=== PATIENT | male | born 1980 | race Caucasian/White ===

== ENCOUNTER 2017-11-18 21:41 | Emergency (ER) | payer MEDICARE, MEDICAID ==
[~2017-11-18] VITALS: Ht 188 cm; Wt 154.0 kg
[2017-11-18] MEDS ORDERED: ONDANSETRON ODT 4 MG ONE (22:22)
[2017-11-18] MEDS ORDERED: DIPHENHYDRAMINE 25 MG CAPSULE ONE (22:22)
[2017-11-18] MEDS ORDERED: DIPHENHYDRAMINE 25 MG CAPSULE PO ONE (22:30)
[2017-11-18] MEDS ORDERED: SODIUM CHLORIDE FLUSH 10ML SYR IVF ONE (22:30)
[2017-11-18] MEDS ORDERED: ONDANSETRON ODT 4 MG PO ONE (22:30)
[2017-11-18 23:00] LABS: BASOPHILS # (AUTO) 0.13 x10^3/uL (0-0.1); BASOPHILS % (AUTO) 2 % (0-1); EOSINOPHILS # (AUTO) 0.26 x10^3/uL (0-0.4); EOSINOPHILS % (AUTO) 4 % (1-7); LYMPHOCYTES # (AUTO) 2.61 x10^3/uL (1-3.4); LYMPHOCYTES % (AUTO) 35 % (22-44); MD NO; MEAN CORPUSCULAR HEMOGLOBIN 26.6 pg (27.5-34.5); MEAN CORPUSCULAR HGB CONC 33.1 g/dL (33.2-36.2); MEAN CORPUSCULAR VOLUME 80.2 fL (81-97); MEAN PLATELET VOLUME 9.8 fL (7.4-10.4); MONOCYTES # (AUTO) 0.63 x10^3/uL (0.2-0.8); MONOCYTES % (AUTO) 8 % (2-9); NEUTROPHILS # (AUTO) 3.94 x10^3/uL (1.8-6.8); NEUTROPHILS % (AUTO) 52 % (42-75); PLATELET COUNT 283 x10^3/uL (130-400); RED BLOOD COUNT 4.28 x10^6/uL (4.38-5.82); RED CELL DISTRIBUTION WIDTH 17.2 % (9.4-14.8)
[2017-11-18 23:10] LABS: ALANINE AMINOTRANSFERASE 17 U/L (12-78); ALBUMIN 2.9 g/dL (3.4-5.0); ANION GAP 6 mmol/L (5-15); CALCIUM 8.2 mg/dL (8.5-10.1); CHLORIDE 108 mmol/L (98-107); CREATININE 0.71 mg/dL (0.7-1.3)
[2017-11-18 23:13] LABS: ALKALINE PHOSPHATASE 104 U/L (45-117); BILIRUBIN,TOTAL 0.2 mg/dL (0.2-1.0); TOTAL PROTEIN 7.6 g/dL (6.4-8.2)
[2017-11-18] MEDS ORDERED: METOCLOPRAMIDE 5 MG/ML, 2ML IVPush ONE (23:30)
[2017-11-18] MEDS ORDERED: METOCLOPRAMIDE 5 MG/ML, 2ML ONE (23:52)
[2017-11-19] MEDS ORDERED: OMNIPAQUE 350 MG/ML, 150 ML BOTTLE ONE (00:13)
[2017-11-19 00:25] LABS: CULTURE INDICATED? NO; MICROSCOPIC INDICATED
[2017-11-19 01:09] VITALS: BP 129/74
== END 2017-11-19 01:11 | disposition home or self-care (01) ==
LOC: ED 22:12
DX: R11.2 Nausea with vomiting, unspecified (principal); R19.7 Diarrhea, unspecified; R10.84 Generalized abdominal pain; E78.5 Hyperlipidemia, unspecified; F43.10 Post-traumatic stress disorder, unspecified
CPT/HCPCS: 36415; 74177; 80053; 81001; 83690; 85025; 96374; 99285; J2765; Q0162; Q0163; Q9967

== ENCOUNTER 2017-12-28 20:12 | Observation (INO) | payer MEDICARE, MEDICAID ==
[~2017-12-28] VITALS: Ht 188 cm; Wt 155.5 kg
[2017-12-28 21:02] LABS: BASOPHILS # (AUTO) 0.03 x10^3/uL (0-0.1); BASOPHILS % (AUTO) 0 % (0-1); EOSINOPHILS # (AUTO) 0.16 x10^3/uL (0-0.4); EOSINOPHILS % (AUTO) 2 % (1-7); LYMPHOCYTES # (AUTO) 1.72 x10^3/uL (1-3.4); LYMPHOCYTES % (AUTO) 19 % (22-44); MD NO; MEAN CORPUSCULAR HEMOGLOBIN 26.4 pg (27.5-34.5); MEAN CORPUSCULAR HGB CONC 33.2 g/dL (33.2-36.2); MEAN CORPUSCULAR VOLUME 79.4 fL (81-97); MEAN PLATELET VOLUME 10.2 fL (7.4-10.4); MONOCYTES % (AUTO) 6 % (2-9); NEUTROPHILS # (AUTO) 6.66 x10^3/uL (1.8-6.8); NEUTROPHILS % (AUTO) 74 % (42-75); PLATELET COUNT 215 x10^3/uL (130-400); RED BLOOD COUNT 4.94 x10^6/uL (4.38-5.82); RED CELL DISTRIBUTION WIDTH 15.9 % (9.4-14.8)
[2017-12-28 21:15] LABS: ALANINE AMINOTRANSFERASE 21 U/L (12-78); ANION GAP 9 mmol/L (5-15); CALCIUM 8.3 mg/dL (8.5-10.1); CHLORIDE 112 mmol/L (98-107); CREATININE 0.62 mg/dL (0.7-1.3)
[2017-12-28 21:17] LABS: ALKALINE PHOSPHATASE 110 U/L (45-117); BILIRUBIN,TOTAL 0.1 mg/dL (0.2-1.0); SALICYLATE LEVEL < 1.7 mg/dL (2.8-20.0); TOTAL PROTEIN 7.7 g/dL (6.4-8.2)
[2017-12-28 21:18] LABS: ACETAMINOPHEN < 2 mcg/mL (10-30)
[2017-12-28 23:06] LABS: AMPHETAMINE SCREEN, URINE Negative (Negative); BARBITURATE SCREEN, URINE Negative (Negative); BENZODIAZEPINE SCREEN, URINE Negative (Negative); CANNABINOID SCREEN, URINE Negative (Negative); COCAINE SCREEN, URINE Negative (Negative); METHADONE SCREEN, URINE Negative (Negative); OPIATE SCREEN, URINE Negative (Negative)
[2017-12-28] MEDS ORDERED: TRAZ-137 PO (23:33)
[2017-12-28] MEDS ORDERED: ATOR10TA9 PO (23:33)
[2017-12-28] MEDS ORDERED: PANT40TA3 PO (23:33)
[2017-12-28] MEDS ORDERED: SERT100T PO (23:33)
[2017-12-29] MEDS ORDERED: TRAZODONE HCL 100 MG PO SCH (00:30)
[2017-12-29] MEDS ORDERED: ACETAMINOPHEN 325 MG TABLET PO PRN (00:30)
[2017-12-29] MEDS ORDERED: POTASSIUM CHLORIDE 20 MEQ TAB.ER.PRT PO ONE (00:30)
[2017-12-29] MEDS ORDERED: TRAZODONE 50MG TABLET ONE (01:24)
[2017-12-29] MEDS ORDERED: POTASSIUM CHLORIDE 20 MEQ TAB.ER.PRT ONE (01:24)
[2017-12-29] MEDS ORDERED: PANTOPRAZOLE 20MG TABLET ONE ×2 (07:56→10:10)
[2017-12-29] MEDS ORDERED: SERTRALINE 50MG TABLET ONE ×2 (07:57→10:10)
[2017-12-29] MEDS ORDERED: SERTRALINE 50MG TABLET PO SCH (09:00)
[2017-12-29] MEDS ORDERED: PANTOPROZOLE 40MG TABLET PO SCH (09:00)
[2017-12-29] MEDS ORDERED: TEMPLATE NON-FORMULARY MED. (Atorvastatin Calcium** 10 MG) PO SCH (21:00)
== END 2017-12-29 13:50 | disposition home or self-care (01) ==
LOC: ED 21:52 → EDIP 23:18
PROVIDERS: ADMIT Hospitalist; ATTEND Hospitalist
DX: R45.851 Suicidal ideations (principal); E66.01 Morbid (severe) obesity due to excess calories; E87.6 Hypokalemia; E78.5 Hyperlipidemia, unspecified; Z91.5 Personal history of self-harm; F43.10 Post-traumatic stress disorder, unspecified
CPT/HCPCS: 36415; 80053; 80307; 80329; 85025; 99285; G0378; G0480

== ENCOUNTER 2018-03-12 11:25 | Emergency (ER) | payer MEDICARE, MEDICAID ==
[~2018-03-12] VITALS: Ht 188 cm; Wt 156.0 kg
[~2018-03-12 11:25] MED LIST: ATOR10TA9 PO; PANT40TA3 PO; SERT100T PO; TRAZ-137 PO
[2018-03-12] MEDS ORDERED: SODIUM CHLORIDE FLUSH 10ML SYR IVF ONE (13:00)
[2018-03-12 13:15] LABS: BASOPHILS # (AUTO) 0.05 x10^3/uL (0-0.1); BASOPHILS % (AUTO) 1 % (0-1); EOSINOPHILS # (AUTO) 0.18 x10^3/uL (0-0.4); EOSINOPHILS % (AUTO) 2 % (1-7); LYMPHOCYTES # (AUTO) 1.76 x10^3/uL (1-3.4); LYMPHOCYTES % (AUTO) 19 % (22-44); MD NO; MEAN CORPUSCULAR HEMOGLOBIN 24.8 pg (27.5-34.5); MEAN CORPUSCULAR HGB CONC 31.9 g/dL (33.2-36.2); MEAN CORPUSCULAR VOLUME 77.6 fL (81-97); MEAN PLATELET VOLUME 11.2 fL (7.4-10.4); MONOCYTES % (AUTO) 5 % (2-9); NEUTROPHILS # (AUTO) 6.85 x10^3/uL (1.8-6.8); NEUTROPHILS % (AUTO) 73 % (42-75); PLATELET COUNT 242 x10^3/uL (130-400); RED CELL DISTRIBUTION WIDTH 18.3 % (9.4-14.8)
[2018-03-12 13:28] LABS: ALBUMIN 3.4 g/dL (3.4-5.0); ANION GAP 10 mmol/L (5-15); CALCIUM 8.5 mg/dL (8.5-10.1); CHLORIDE 110 mmol/L (98-107)
[2018-03-12 13:29] LABS: CREATININE 0.68 mg/dL (0.7-1.3)
[2018-03-12] MEDS ORDERED: OMNIPAQUE 350 MG/ML, 150 ML BOTTLE ONE (14:19)
[2018-03-12] MEDS ORDERED: ONDANSETRON 2MG/ML, 2ML ONE (15:34)
[2018-03-12] MEDS ORDERED: ONDANSETRON 2MG/ML, 2ML IVPush ONE (16:00)
[2018-03-12 16:02] LABS: AMPHETAMINE SCREEN, URINE Negative (Negative); BARBITURATE SCREEN, URINE Negative (Negative); BENZODIAZEPINE SCREEN, URINE Negative (Negative); CANNABINOID SCREEN, URINE Negative (Negative); COCAINE SCREEN, URINE Negative (Negative); METHADONE SCREEN, URINE Negative (Negative); OPIATE SCREEN, URINE Negative (Negative)
[2018-03-12 16:21] LABS: ACETAMINOPHEN < 2 mcg/mL (10-30); SALICYLATE LEVEL < 1.7 mg/dL (2.8-20.0)
[2018-03-12 16:28] VITALS: BP 116/57
== END 2018-03-12 17:10 | disposition home or self-care (01) ==
LOC: ED 12:49
DX: S31.139A Puncture wound of abdominal wall without foreign body, unspecified quadrant without penetration into peritoneal cavity, initial encounter (principal); E78.5 Hyperlipidemia, unspecified; F32.9 Major depressive disorder, single episode, unspecified; Z00.01 Encounter for general adult medical examination with abnormal findings; W26.9XXA Contact with unspecified sharp object(s), initial encounter; Y93.89 Activity, other specified; Y92.009 Unspecified place in unspecified non-institutional (private) residence as the place of occurrence of the external cause; Y99.8 Other external cause status
CPT/HCPCS: 36415; 74022; 74177; 80048; 80307; 80329; 82040; 85025; 96374; 99284; J2405; Q9967; G0480

== ENCOUNTER 2019-03-26 12:29 | Emergency (ER) | payer MEDICARE, MEDICAID ==
[~2019-03-26] VITALS: Ht 188 cm; Wt 163.0 kg
[~2019-03-26 12:29] MED LIST changes: +PANT40TA5 PO; +SERT100T32 PO
[2019-03-26 12:35] VITALS: BP 129/47
--- NOTE | 2019-03-26 12:40 | NUR ---
LUL. REPORT RECEIVED FROM EMS. PT HAS SI WITH PLANS. HX OF DEPRESSION AND PTSD. PT'S AOX4. RESPS EVEN AND UNLABORED.
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
--- NOTE | 2019-03-26 13:11 | NUR ---
LUNCH RN: LABS COLLECTED. PT RESTING IN BED, CALM AND COOPERATIVE AT THIS TIME. SITTER IN HEREDIA FOR CONTINUOUS MONITORING.
[2019-03-26 13:21] LABS: BASOPHILS # (AUTO) 0.04 x10^3/uL (0-0.1); BASOPHILS % (AUTO) 1 % (0-1); EOSINOPHILS % (AUTO) 2 % (1-7); LYMPHOCYTES # (AUTO) 1.42 x10^3/uL (1-3.4); LYMPHOCYTES % (AUTO) 23 % (22-44); MD NO; MEAN CORPUSCULAR HEMOGLOBIN 25.4 pg (27.5-34.5); MEAN CORPUSCULAR HGB CONC 32.4 g/dL (33.2-36.2); MEAN CORPUSCULAR VOLUME 78.4 fL (81-97); MEAN PLATELET VOLUME 9.7 fL (7.4-10.4); MONOCYTES # (AUTO) 0.24 x10^3/uL (0.2-0.8); MONOCYTES % (AUTO) 4 % (2-9); NEUTROPHILS # (AUTO) 4.27 x10^3/uL (1.8-6.8); NEUTROPHILS % (AUTO) 70 % (42-75); PLATELET COUNT 229 x10^3/uL (130-400); RED BLOOD COUNT 4.97 x10^6/uL (4.38-5.82); RED CELL DISTRIBUTION WIDTH 16.8 % (9.4-14.8)
[2019-03-26 13:29] LABS: ALANINE AMINOTRANSFERASE 32 U/L (12-78); ALBUMIN 3.2 g/dL (3.4-5.0); ANION GAP 5 mmol/L (5-15); CHLORIDE 112 mmol/L (98-107); CREATININE 0.68 mg/dL (0.7-1.3)
[2019-03-26 13:32] LABS: ALKALINE PHOSPHATASE 112 U/L (45-117); BILIRUBIN,TOTAL 0.2 mg/dL (0.2-1.0); TOTAL PROTEIN 7.6 g/dL (6.4-8.2)
[2019-03-26 13:33] LABS: SALICYLATE LEVEL < 1.7 mg/dL (2.8-20.0)
--- NOTE | 2019-03-26 14:16 | NUR ---
URINAL AT BEDSIDE
--- NOTE | 2019-03-26 14:27 | NUR ---
PT PROVIDED URINE SAMPLE AT THIS TIME. UA SENT.
[2019-03-26] MEDS ORDERED: OLANZAPINE 5 MG TABLET ONE (14:30)
[2019-03-26] MEDS ORDERED: OLANZAPINE ODT 10MG PO ONE (14:30)
--- NOTE | 2019-03-26 14:33 | NUR ---
MED ORDERED FROM PHARMACY AT THIS TIME.
[2019-03-26 14:47] LABS: AMPHETAMINE SCREEN, URINE Negative (Negative); BARBITURATE SCREEN, URINE Negative (Negative); BENZODIAZEPINE SCREEN, URINE Negative (Negative); CANNABINOID SCREEN, URINE Negative (Negative); COCAINE SCREEN, URINE Negative (Negative); METHADONE SCREEN, URINE Negative (Negative); OPIATE SCREEN, URINE Negative (Negative)
--- NOTE | 2019-03-26 14:53 | NUR ---
MEAL TRAY ORDERED AT THIS TIME.
--- NOTE | 2019-03-26 15:05 | NUR ---
PT MEDICATED PER EMAR. PT TOLERATED WELL.
--- NOTE | 2019-03-26 15:34 | NUR ---
MEAL TRAY PROVIDED AT THIS TIME.
--- NOTE | 2019-03-26 15:48 | NUR ---
SODA AND SNACKS PROVIDED AT THIS TIME.
--- NOTE | 2019-03-26 16:24 | NUR ---
LINDSEY RN: PACKET FAXED TO [facility]
--- NOTE | 2019-03-26 17:23 | NUR ---
REPORT GIVEN TO ALL GUERIN. ALL QUESTIONS ANSWERED.
[2019-03-26] MEDS ORDERED: TRAZODONE 100MG TABLET PO PRN (21:00)
[2019-03-27] MEDS ORDERED: OLANZAPINE ODT 10MG PO PRN (08:00)
[2019-03-27] MEDS ORDERED: SERTRALINE 100MG TABLET PO SCH (09:00)
[2019-03-27] MEDS ORDERED: OLANZAPINE ODT 10MG PO ONE (09:00)
== END 2019-03-26 22:45 | disposition other institution (70) ==
LOC: ED 15:21
DX: F33.9 Major depressive disorder, recurrent, unspecified (principal); R45.851 Suicidal ideations
CPT/HCPCS: 36415; 80053; 80307; 85025; 99284

== ENCOUNTER 2019-03-26 17:32 | Inpatient (IN) | payer MEDICARE, MEDICAID ==
[~2019-03-26] VITALS: Ht 188 cm; Wt 165.2 kg
[2019-03-26] MEDS ORDERED: POLYETHYLENE GLYCOL 17 GM PACKET PO PRN (18:00)
[2019-03-26] MEDS ORDERED: ONDANSETRON ODT 4 MG PO PRN (18:00)
[2019-03-26] MEDS ORDERED: BISACODYL 10 MG SUPP PR PRN (18:00)
[2019-03-26] MEDS ORDERED: ACETAMINOPHEN 325 MG TABLET PO PRN (18:00)
[2019-03-26 18:24] VITALS: BP 121/78
[2019-03-26 19:00] VITALS: BP 90/49
[2019-03-26] MEDS ORDERED: TRAZODONE 100MG TABLET PO PRN (21:00)
[2019-03-26] MEDS: ATORVASTATIN 10 MG TABLET PO SCH (21:08)
[2019-03-27] MEDS: PANTOPROZOLE 40MG TABLET PO SCH (05:26)
[2019-03-27 06:36] VITALS: BP 111/60
[2019-03-27 07:29] LABS: FREE T4 (FREE THYROXINE) 0.97 ng/dL (0.76-1.46)
[2019-03-27 07:50] VITALS: BP 131/80
[2019-03-27] MEDS: SERTRALINE 50MG TABLET PO SCH (08:13)
[2019-03-27] MEDS: IBUPROFEN 200 MG TABLET PO PRN ×3 (10:46→20:11)
[2019-03-27 16:40] LABS: MICROSCOPIC NOT IND
[2019-03-27 16:44] LABS: CULTURE INDICATED? NO
[2019-03-27 19:39] VITALS: BP 114/75
[2019-03-27] MEDS: ATORVASTATIN 10 MG TABLET PO SCH (20:11)
[2019-03-28] MEDS: PANTOPROZOLE 40MG TABLET PO SCH (06:07)
[2019-03-28 07:54] VITALS: BP 108/72
[2019-03-28] MEDS: SERTRALINE 50MG TABLET PO SCH (08:43)
[2019-03-28] MEDS: IBUPROFEN 200 MG TABLET PO PRN ×2 (09:11→17:28)
[2019-03-28 20:03] VITALS: BP 144/83
[2019-03-28] MEDS: ATORVASTATIN 10 MG TABLET PO SCH (20:15)
[2019-03-29] MEDS: PANTOPROZOLE 40MG TABLET PO SCH (06:56)
[2019-03-29 07:26] VITALS: BP 96/58
[2019-03-29] MEDS: SERTRALINE 50MG TABLET PO SCH (07:58)
[2019-03-29] MEDS: IBUPROFEN 200 MG TABLET PO PRN (07:58)
== END 2019-03-29 14:12 | disposition home or self-care (01) | DRG 885 ==
LOC: 3E 18:02
PROVIDERS: ADMIT Psychiatry & Neurology Psychosomatic Medicine; ATTEND Psychiatry & Neurology Psychosomatic Medicine
DX: F33.2 Major depressive disorder, recurrent severe without psychotic features (principal); R45.851 Suicidal ideations; Z68.42 Body mass index [BMI] 45.0-49.9, adult; E66.01 Morbid (severe) obesity due to excess calories; E78.5 Hyperlipidemia, unspecified; F43.10 Post-traumatic stress disorder, unspecified; G47.00 Insomnia, unspecified; K21.9 Gastro-esophageal reflux disease without esophagitis; Z91.5 Personal history of self-harm
CPT/HCPCS: 36415; 80053; 80307; 81003; 82140; 84439; 84443; 85025; 93005; 99284

== ENCOUNTER 2019-06-22 19:00 | Emergency (ER) | payer MEDICARE, MEDICAID ==
[~2019-06-22] VITALS: Ht 188 cm; Wt 155.6 kg
[~2019-06-22 19:00] MED LIST changes: -TRAZ-137 PO; +TRAZ-175 PO
[2019-06-22] MEDS ORDERED: SODIUM CHLORIDE 0.9% 1,000ML IVBOLUS ONE (19:30)
[2019-06-22] MEDS ORDERED: SODIUM CHLORIDE FLUSH 10ML SYR IVF ONE (19:30)
[2019-06-22] MEDS ORDERED: ONDANSETRON 2MG/ML, 2ML IVPush ONE ×2 (19:30→21:00)
--- NOTE | 2019-06-22 19:45 | NUR ---
THIS IS A 38 YO M W/ C/O BRIGHT RED BLOODY STOOL APPROX 45 MIN PRIOR TO ARRIVAL. PT REPORTS ONSET OF PERIUMBILICAL AND BILAT LWR QUAD ABD PAIN W/ BM. HX:HEMORRHOIDS AND MULITIPLE ABD SX. VS STABLE. RESP EVEN AND UNLABORED. NADN. PT IS RESTING ON [employer] W/ CALL LIGHT IN REACH. DENIES FURTHER NEEDS AT THIS TIME.
[2019-06-22] MEDS ORDERED: HYDROmorphone 1 MG/ML, 1ML INJ ONE ×2 (19:50→20:57)
[2019-06-22] MEDS ORDERED: ONDANSETRON 2MG/ML, 2ML ONE ×2 (19:50→20:52)
[2019-06-22 19:57] LABS: BASOPHILS # (AUTO) 0.03 x10^3/uL (0-0.1); BASOPHILS % (AUTO) 0 % (0-1); EOSINOPHILS % (AUTO) 1 % (1-7); LYMPHOCYTES # (AUTO) 1.54 x10^3/uL (1-3.4); LYMPHOCYTES % (AUTO) 20 % (22-44); MD NO; MEAN CORPUSCULAR HEMOGLOBIN 25.7 pg (27.5-34.5); MEAN CORPUSCULAR HGB CONC 32.6 g/dL (33.2-36.2); MEAN CORPUSCULAR VOLUME 78.7 fL (81-97); MEAN PLATELET VOLUME 11.3 fL (7.4-10.4); MONOCYTES # (AUTO) 0.29 x10^3/uL (0.2-0.8); MONOCYTES % (AUTO) 4 % (2-9); NEUTROPHILS # (AUTO) 5.85 x10^3/uL (1.8-6.8); NEUTROPHILS % (AUTO) 75 % (42-75); PLATELET COUNT 235 x10^3/uL (130-400); RED BLOOD COUNT 5.71 x10^6/uL (4.38-5.82); RED CELL DISTRIBUTION WIDTH 15.8 % (9.4-14.8)
[2019-06-22] MEDS: HYDROmorphone 2 MG/ML, 1ML IVPush PRN ×2 (20:00→20:58)
--- NOTE | 2019-06-22 20:00 | NUR ---
PT MEDICATED PER EMAR.
--- NOTE | 2019-06-22 20:03 | NUR ---
PT TO RAD.
[2019-06-22 20:09] LABS: INTERNATIONAL NORMALIZED RATIO 0.93 (0.93-1.1); PROTHROMBIN TIME 9.9 Seconds (9.6-11.5)
[2019-06-22 20:10] LABS: ALBUMIN 3.4 g/dL (3.4-5.0); ANION GAP 5 mmol/L (5-15); CHLORIDE 109 mmol/L (98-107)
[2019-06-22 20:12] LABS: SALICYLATE LEVEL < 1.7 mg/dL (2.8-20.0)
[2019-06-22 20:15] LABS: ALANINE AMINOTRANSFERASE 26 U/L (12-78); ALKALINE PHOSPHATASE 116 U/L (45-117); BILIRUBIN,TOTAL 0.2 mg/dL (0.2-1.0); TOTAL PROTEIN 8.4 g/dL (6.4-8.2)
--- NOTE | 2019-06-22 20:19 | NUR ---
PT PROVIDED URINAL.
--- NOTE | 2019-06-22 20:24 | NUR ---
PT TO CT.
[2019-06-22 20:54] LABS: CULTURE INDICATED? NO; MICROSCOPIC NOT IND
[2019-06-22] MEDS ORDERED: OMNIPAQUE 350 MG/ML, 150 ML BOTTLE ONE (20:57)
--- NOTE | 2019-06-22 21:01 | NUR ---
PT MEDICATED PER EMAR. RESTING ON [employer] W/ CALL LIGHT IN REACH. AWAITING RESULTS.
[2019-06-22 21:03] VITALS: BP 141/77
[2019-06-22 21:07] LABS: AMPHETAMINE SCREEN, URINE Negative (Negative); BARBITURATE SCREEN, URINE Negative (Negative); BENZODIAZEPINE SCREEN, URINE Negative (Negative); CANNABINOID SCREEN, URINE Negative (Negative); COCAINE SCREEN, URINE Negative (Negative); METHADONE SCREEN, URINE Negative (Negative); OPIATE SCREEN, URINE Positive (Negative)
== END 2019-06-22 21:51 | disposition home or self-care (01) ==
LOC: ED 21:05
DX: K62.5 Hemorrhage of anus and rectum (principal); E78.5 Hyperlipidemia, unspecified
CPT/HCPCS: 36415; 74018; 74174; 80053; 80307; 81003; 83605; 83690; 85025; 85610; 85730; 86850; 86900; 96374; 96375; 96376; 99285; J1170; J2405; J7030; Q9967

== ENCOUNTER 2019-10-01 22:59 | Emergency (ER) | payer MEDICARE, MEDICAID ==
[~2019-10-01] VITALS: Ht 188 cm; Wt 152.9 kg
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
[2019-10-01 23:46] LABS: ALBUMIN 3.2 g/dL (3.4-5.0); ANION GAP 7 mmol/L (5-15); CALCIUM 8.5 mg/dL (8.5-10.1); CHLORIDE 110 mmol/L (98-107); CREATININE 0.71 mg/dL (0.7-1.3)
[2019-10-01 23:47] LABS: SALICYLATE LEVEL < 1.7 mg/dL (2.8-20.0)
--- NOTE | 2019-10-02 00:16 | NUR ---
CBC CLOTTED. REDRAW TO TAKE PLACE
--- NOTE | 2019-10-02 00:41 | NUR ---
PT PROVIDED WITH WATER AND STATES HE WILL REATTEMPT TO PROVIDE A URINE SAMPLE AFTER DRINKING IT
[2019-10-02 00:42] LABS: BASOPHILS # (AUTO) 0.05 x10^3/uL (0-0.1); BASOPHILS % (AUTO) 1 % (0-1); EOSINOPHILS # (AUTO) 0.14 x10^3/uL (0-0.4); EOSINOPHILS % (AUTO) 2 % (1-7); LYMPHOCYTES # (AUTO) 1.64 x10^3/uL (1-3.4); LYMPHOCYTES % (AUTO) 23 % (22-44); MD NO; MEAN CORPUSCULAR HEMOGLOBIN 25.5 pg (27.5-34.5); MEAN CORPUSCULAR HGB CONC 32.3 g/dL (33.2-36.2); MEAN CORPUSCULAR VOLUME 78.7 fL (81-97); MEAN PLATELET VOLUME 10.1 fL (7.4-10.4); MONOCYTES # (AUTO) 0.45 x10^3/uL (0.2-0.8); MONOCYTES % (AUTO) 6 % (2-9); NEUTROPHILS # (AUTO) 4.82 x10^3/uL (1.8-6.8); NEUTROPHILS % (AUTO) 68 % (42-75); PLATELET COUNT 217 x10^3/uL (130-400); RED BLOOD COUNT 4.65 x10^6/uL (4.38-5.82); RED CELL DISTRIBUTION WIDTH 15.3 % (9.4-14.8)
--- NOTE | 2019-10-02 00:50 | NUR ---
Pt provided very small urine sample in cup. Sample walked to lab at this time
[2019-10-02 01:19] LABS: AMPHETAMINE SCREEN, URINE Negative (Negative); BARBITURATE SCREEN, URINE Negative (Negative); BENZODIAZEPINE SCREEN, URINE Negative (Negative); CANNABINOID SCREEN, URINE Negative (Negative); COCAINE SCREEN, URINE Negative (Negative); METHADONE SCREEN, URINE Negative (Negative); OPIATE SCREEN, URINE Negative (Negative)
--- NOTE | 2019-10-02 02:14 | NUR ---
Pt ambulated to bathroom and back to bed without issue, lights lowered to promote rest, call esquivel within reach, safety of room ensured, will continue to monitor
--- NOTE | 2019-10-02 03:17 | NUR ---
Pt resting in bed with eyes closed, NAD noted, appears comfortable, call esquivel within reach
--- NOTE | 2019-10-02 05:20 | NUR ---
PT SLEEPING IN BED, APPEARS COMFORTABLE, NAD NOTED, WILL CONTINUE TO MONITOR
--- NOTE | 2019-10-02 06:22 | NUR ---
PT AMBULATED TO RESTROOM, PT NOTIFIED NURSE THAT HE IS "BLEEDING RECTALLY" FOLLOWING A LARGE BOWEL MOVEMENT. PT REPORTS HX OF SAME
--- NOTE | 2019-10-02 07:04 | NUR ---
REPORT FROM NIMISHA GUERIN
[2019-10-02 08:00] VITALS: BP 127/84
--- NOTE | 2019-10-02 08:00 | NUR ---
PT IN ROOM WITH SUPPLIES SECURED BEHIND PULL DOWN DOORS. PT IN ROOM WITH CAMERA MONITORING. DENIES SUICIDAL IDEATION AT THIS TIME.
--- NOTE | 2019-10-02 12:30 | NUR ---
MOIRA SAENZ SPEAKING WITH PT
--- NOTE | 2019-10-02 14:54 | NUR ---
REPORT TO MACO GUERIN. PT TO BE TRANSPORTED TO MENTAL HEALTH UNIT
[2019-10-02] MEDS ORDERED: FLUOXETINE HCL 20 MG CAPSULE PO SCH (17:00)
[2019-10-05] MEDS ORDERED: FLUO20CA23 PO (16:05)
== END 2019-10-02 15:57 ==
LOC: ED 10-02 10:32
DX: R45.851 Suicidal ideations (principal); E78.5 Hyperlipidemia, unspecified
CPT/HCPCS: 36415; 80048; 80307; 82040; 85025; 99284; 99285

== ENCOUNTER 2019-12-12 00:19 | Emergency (ER) | payer MEDICARE, MEDICAID ==
[~2019-12-12] VITALS: Ht 188 cm; Wt 151.6 kg
[~2019-12-12 00:19] MED LIST changes: +FLUO20CA23 PO; -PANT40TA5 PO; +PANT40TA6 PO
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
--- NOTE | 2019-12-12 01:10 | NUR ---
PIV PLACED VIA ULTRASOUND FOR CT
[2019-12-12 01:25] LABS: BASOPHILS # (AUTO) 0.05 x10^3/uL (0-0.1); BASOPHILS % (AUTO) 1 % (0-1); EOSINOPHILS # (AUTO) 0.14 x10^3/uL (0-0.4); EOSINOPHILS % (AUTO) 2 % (1-7); LYMPHOCYTES % (AUTO) 26 % (22-44); MD NO; MEAN CORPUSCULAR HEMOGLOBIN 24.4 pg (27.5-34.5); MEAN CORPUSCULAR HGB CONC 31.7 g/dL (33.2-36.2); MEAN CORPUSCULAR VOLUME 77.2 fL (81-97); MONOCYTES % (AUTO) 8 % (2-9); NEUTROPHILS # (AUTO) 3.79 x10^3/uL (1.8-6.8); NEUTROPHILS % (AUTO) 62 % (42-75); PLATELET COUNT 231 x10^3/uL (130-400); RED BLOOD COUNT 4.57 x10^6/uL (4.38-5.82); RED CELL DISTRIBUTION WIDTH 18.7 % (9.4-14.8)
[2019-12-12 01:37] LABS: ALANINE AMINOTRANSFERASE 16 U/L (12-78); ALBUMIN 2.8 g/dL (3.4-5.0); ANION GAP 5 mmol/L (5-15); CALCIUM 8.6 mg/dL (8.5-10.1); CHLORIDE 110 mmol/L (98-107); CREATININE 0.62 mg/dL (0.7-1.3)
[2019-12-12 01:40] LABS: ALKALINE PHOSPHATASE 109 U/L (45-117); BILIRUBIN,TOTAL 0.2 mg/dL (0.2-1.0); TOTAL PROTEIN 7.3 g/dL (6.4-8.2)
--- NOTE | 2019-12-12 01:51 | NUR ---
PATIENT BACK FROM CT
[2019-12-12] MEDS ORDERED: OMNIPAQUE 350 MG/ML, 100ML BOTTLE ONE (02:01)
--- NOTE | 2019-12-12 02:53 | NUR ---
REPORT GIVEN TO TRUONG OCONNOR. PLAN OF CARE DISCUSSED
--- NOTE | 2019-12-12 02:55 | NUR ---
CARE OF PT ASSUMED. PT AWAKE ALERT ORIENTED. VSS, UPDATED PT ON PLAN. NAD, CALM, COOPERATIVE. WILL CONTINUE TO MONITOR.
[2019-12-12 06:25] VITALS: BP 122/78
--- NOTE | 2019-12-12 06:33 | NUR ---
Patient given discharge instructions and they have confirmed that they understand the instructions. Patient ambulatory with steady gait.
== END 2019-12-12 06:35 | disposition home or self-care (01) ==
LOC: ED 01:22
DX: S31.115A Laceration without foreign body of abdominal wall, periumbilic region without penetration into peritoneal cavity, initial encounter (principal); R10.33 Periumbilical pain; R11.0 Nausea; R50.9 Fever, unspecified; E78.5 Hyperlipidemia, unspecified; K21.9 Gastro-esophageal reflux disease without esophagitis; X78.9XXA Intentional self-harm by unspecified sharp object, initial encounter; Y93.89 Activity, other specified; Y92.89 Other specified places as the place of occurrence of the external cause; Y99.8 Other external cause status
CPT/HCPCS: 36415; 74177; 80053; 85025; 99285; Q9967

== ENCOUNTER 2020-01-08 18:55 | Emergency (ER) | payer MEDICARE, MEDICAID ==
[~2020-01-08] VITALS: Ht 190.5 cm; Wt 150.0 kg
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
[2020-01-08] MEDS ORDERED: PROMETHAZINE 25 MG/ML, 1ML ONE (19:35)
--- NOTE | 2020-01-08 19:39 | NUR ---
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
[2020-01-08 19:42] LABS: ALANINE AMINOTRANSFERASE 16 U/L (12-78); ALBUMIN 3.2 g/dL (3.4-5.0); ANION GAP 5 mmol/L (5-15); CALCIUM 8.6 mg/dL (8.5-10.1); CHLORIDE 110 mmol/L (98-107); CREATININE 0.69 mg/dL (0.7-1.3)
[2020-01-08 19:44] LABS: ALKALINE PHOSPHATASE 120 U/L (45-117); BILIRUBIN,TOTAL 0.3 mg/dL (0.2-1.0); TOTAL PROTEIN 7.8 g/dL (6.4-8.2)
[2020-01-08] MEDS ORDERED: PROMETHAZINE 25 MG/ML, 1ML IM ONE (20:00)
[2020-01-08 20:42] LABS: BASOPHILS % (AUTO) 1 % (0-1); EOSINOPHILS % (AUTO) 1 % (1-7); LYMPHOCYTES % (AUTO) 19 % (22-44); MEAN CORPUSCULAR HEMOGLOBIN 24.9 pg (27.5-34.5); MEAN CORPUSCULAR HGB CONC 32.4 g/dL (33.2-36.2); MEAN PLATELET VOLUME 9.7 fL (7.4-10.4); MONOCYTES % (AUTO) 7 % (2-9); NEUTROPHILS % (AUTO) 73 % (42-75); PLATELET COUNT 208 x10^3/uL (130-400); RED BLOOD COUNT 5.01 x10^6/uL (4.38-5.82); RED CELL DISTRIBUTION WIDTH 18.9 % (9.4-14.8)
[2020-01-08 20:53] LABS: MD NO
--- NOTE | 2020-01-08 20:56 | NUR ---
ALL RESULTS ARE BACK AT THIS TIME. CHART UP FOR RECHECK.
[2020-01-08 20:58] VITALS: BP 105/49
--- NOTE | 2020-01-08 21:07 | NUR ---
MD AT BEDSIDE TO UPDATE PT ON POC.
[2020-01-08] MEDS ORDERED: OMNIPAQUE 350 MG/ML, 100ML BOTTLE ONE (23:25)
== END 2020-01-08 21:30 | disposition home or self-care (01) ==
LOC: ED 20:33
DX: R10.33 Periumbilical pain (principal); R11.2 Nausea with vomiting, unspecified; K21.9 Gastro-esophageal reflux disease without esophagitis
CPT/HCPCS: 36415; 74177; 80053; 83690; 85025; 96372; 99285; J2550; Q9967

== ENCOUNTER 2020-02-06 23:15 | Inpatient (IN) | payer MEDICARE, MEDICAID ==
[~2020-02-06] VITALS: Ht 188 cm; Wt 152.0 kg
[~2020-02-06 23:15] MED LIST changes: +CYCL5TAB PO; +FLUO20TA25 PO; +OLAN10TA7 PO; +OLAN5TAB9 PO
[2020-02-07] MEDS ORDERED: BISACODYL 10 MG SUPP PR PRN (01:00)
[2020-02-07] MEDS ORDERED: CYCLOBENZAPRINE 10 MG TABLET PO PRN (01:00)
[2020-02-07 02:00] VITALS: BP 111/76
[2020-02-07 07:37] VITALS: BP 116/58
[2020-02-07] MEDS: PANTOPRAZOLE 40MG TABLET PO SCH (08:25)
[2020-02-07] MEDS: FLUOXETINE HCL 20 MG CAPSULE PO SCH (08:25)
[2020-02-07] MEDS: ACETAMINOPHEN 325 MG TABLET PO PRN (16:41)
[2020-02-07 19:26] VITALS: BP 113/70
[2020-02-07] MEDS: ATORVASTATIN 10 MG TABLET PO SCH (20:19)
[2020-02-07] MEDS: OLANZAPINE ODT 10MG PO SCH (20:19)
[2020-02-08 07:14] VITALS: BP 116/71
[2020-02-08] MEDS: PANTOPRAZOLE 40MG TABLET PO SCH (08:12)
[2020-02-08] MEDS: FLUOXETINE HCL 20 MG CAPSULE PO SCH (08:12)
[2020-02-08] MEDS: ACETAMINOPHEN 325 MG TABLET PO PRN (11:21)
[2020-02-08] MEDS: DOCUSATE 100 MG CAPSULE PO PRN (17:06)
[2020-02-08 19:15] VITALS: BP 121/74
[2020-02-08] MEDS: OLANZAPINE ODT 10MG PO SCH (20:12)
[2020-02-08] MEDS: POLYETHYLENE GLYCOL 17 GM PACKET PO PRN (20:12)
[2020-02-08] MEDS: ATORVASTATIN 10 MG TABLET PO SCH (20:12)
[2020-02-09 07:30] VITALS: BP 101/58
[2020-02-09] MEDS: PANTOPRAZOLE 40MG TABLET PO SCH (08:41)
[2020-02-09] MEDS: FLUOXETINE HCL 20 MG CAPSULE PO SCH (08:41)
[2020-02-09] MEDS: ACETAMINOPHEN 325 MG TABLET PO PRN (09:42)
[2020-02-09] MEDS: DOCUSATE 100 MG CAPSULE PO PRN (18:33)
[2020-02-09] MEDS: OLANZAPINE ODT 10MG PO SCH (20:14)
[2020-02-09] MEDS: ATORVASTATIN 10 MG TABLET PO SCH (20:14)
[2020-02-09 20:15] VITALS: BP 107/69
[2020-02-10 07:27] VITALS: BP 110/70
[2020-02-10] MEDS: FLUOXETINE HCL 20 MG CAPSULE PO SCH (07:37)
[2020-02-10] MEDS: PANTOPRAZOLE 40MG TABLET PO SCH (07:37)
[2020-02-10] MEDS: DOCUSATE 100 MG CAPSULE PO PRN ×2 (07:40→20:11)
[2020-02-10] MEDS ORDERED: MAGNESIUM CITRATE 300ML ORAL SOL PO PRN (11:00)
[2020-02-10] MEDS ORDERED: FLUOXETINE HCL 20 MG CAPSULE PO ONE (11:00)
[2020-02-10 19:57] VITALS: BP 135/88
[2020-02-10] MEDS: ATORVASTATIN 10 MG TABLET PO SCH (20:11)
[2020-02-10] MEDS: OLANZAPINE ODT 10MG PO SCH (20:11)
[2020-02-10] MEDS: TRAZODONE 50MG TABLET PO PRN (21:39)
[2020-02-11 07:12] VITALS: BP 118/70
[2020-02-11] MEDS: PANTOPRAZOLE 40MG TABLET PO SCH (08:05)
[2020-02-11] MEDS: ONDANSETRON ODT 4 MG PO PRN ×2 (08:05→16:48)
[2020-02-11] MEDS: FLUOXETINE HCL 20 MG CAPSULE PO SCH (08:05)
[2020-02-11 19:30] VITALS: BP 111/68
[2020-02-11] MEDS: SULFAMETH./TRIMETHOPRIM DS 800MG/160MG TABLET PO SCH (20:17)
[2020-02-11] MEDS: OLANZAPINE ODT 10MG PO SCH (20:17)
[2020-02-11] MEDS: ATORVASTATIN 10 MG TABLET PO SCH (20:17)
[2020-02-12] MEDS: TRAZODONE 50MG TABLET PO PRN ×2 (01:05→20:33)
[2020-02-12 06:53] VITALS: BP 117/67
[2020-02-12] MEDS ORDERED: DIPHENHYDRAMINE 25 MG CAPSULE PO ONE (08:30)
[2020-02-12] MEDS: SULFAMETH./TRIMETHOPRIM DS 800MG/160MG TABLET PO SCH ×2 (08:33→20:28)
[2020-02-12] MEDS: PANTOPRAZOLE 40MG TABLET PO SCH (08:34)
[2020-02-12] MEDS: FLUOXETINE HCL 20 MG CAPSULE PO SCH (08:34)
[2020-02-12] MEDS: OLANZAPINE ODT 10MG PO SCH (20:28)
[2020-02-12] MEDS: ATORVASTATIN 10 MG TABLET PO SCH (20:28)
[2020-02-12] MEDS: DOCUSATE 100 MG CAPSULE PO PRN (20:33)
[2020-02-13 07:24] VITALS: BP 90/53
[2020-02-13] MEDS: FLUOXETINE HCL 20 MG CAPSULE PO SCH (08:49)
[2020-02-13] MEDS: SULFAMETH./TRIMETHOPRIM DS 800MG/160MG TABLET PO SCH ×2 (08:49→21:07)
[2020-02-13] MEDS: PANTOPRAZOLE 40MG TABLET PO SCH (08:49)
[2020-02-13] MEDS: POLYETHYLENE GLYCOL 17 GM PACKET PO PRN (08:56)
[2020-02-13 20:10] VITALS: BP 110/72
[2020-02-13] MEDS: ATORVASTATIN 10 MG TABLET PO SCH (21:07)
[2020-02-13] MEDS: OLANZAPINE ODT 10MG PO SCH (21:07)
[2020-02-13] MEDS: TRAZODONE 50MG TABLET PO PRN (21:10)
[2020-02-14] MEDS: FLUOXETINE HCL 20 MG CAPSULE PO SCH (08:24)
[2020-02-14] MEDS: PANTOPRAZOLE 40MG TABLET PO SCH (08:24)
[2020-02-14] MEDS: SULFAMETH./TRIMETHOPRIM DS 800MG/160MG TABLET PO SCH (08:24)
[2020-02-14 08:30] VITALS: BP 123/77
[2020-02-14] MEDS ORDERED: FLUO20CA23 PO (13:54)
[2020-02-14] MEDS ORDERED: Sulfameth./Trimethoprim Ds PO (13:54)
[2020-02-14] MEDS ORDERED: OLAN10TA7 PO (13:54)
[2020-02-14] MEDS ORDERED: ATOR10TA9 PO (13:54)
[2020-02-14] MEDS ORDERED: PANT40TA6 PO (13:54)
== END 2020-02-14 14:20 | disposition home or self-care (01) | DRG 885 ==
LOC: 3E 02-07 01:45
PROVIDERS: ADMIT Psychiatry & Neurology Psychosomatic Medicine; ATTEND Psychiatry & Neurology Psychosomatic Medicine
DX: F33.2 Major depressive disorder, recurrent severe without psychotic features (principal); Z68.41 Body mass index [BMI] 40.0-44.9, adult; B95.61 Methicillin susceptible Staphylococcus aureus infection as the cause of diseases classified elsewhere; E66.9 Obesity, unspecified; E78.5 Hyperlipidemia, unspecified; F43.10 Post-traumatic stress disorder, unspecified; F60.3 Borderline personality disorder; F63.9 Impulse disorder, unspecified; G47.00 Insomnia, unspecified; I10 Essential (primary) hypertension; K21.9 Gastro-esophageal reflux disease without esophagitis; K76.0 Fatty (change of) liver, not elsewhere classified; G89.29 Other chronic pain; M54.10 Radiculopathy, site unspecified; M51.9 Unspecified thoracic, thoracolumbar and lumbosacral intervertebral disc disorder; Z80.8 Family history of malignant neoplasm of other organs or systems; Z82.61 Family history of arthritis; Z79.899 Other long term (current) drug therapy; Z82.49 Family history of ischemic heart disease and other diseases of the circulatory system; Z88.0 Allergy status to penicillin; Z88.1 Allergy status to other antibiotic agents; Z88.8 Allergy status to other drugs, medicaments and biological substances; Z88.5 Allergy status to narcotic agent; Z91.040 Latex allergy status; Z91.09 Other allergy status, other than to drugs and biological substances; S31.109A Unspecified open wound of abdominal wall, unspecified quadrant without penetration into peritoneal cavity, initial encounter
CPT/HCPCS: 87070; 87077; 87186; 87205; Q0162; Q0163

== ENCOUNTER 2020-05-18 00:03 | Emergency (ER) | payer MEDICARE, MEDICAID ==
[~2020-05-18] VITALS: Ht 188 cm; Wt 150.0 kg
[~2020-05-18 00:03] MED LIST changes: +Sulfameth./Trimethoprim Ds PO
[2020-05-18 00:10] VITALS: BP 160/87
[2020-05-18] MEDS ORDERED: SODIUM CHLORIDE FLUSH 10ML SYR IVF ONE (01:00)
[2020-05-18] MEDS ORDERED: HYDROmorphone 1 MG/ML, 1ML INJ IVPush PRN (01:00)
[2020-05-18] MEDS ORDERED: ONDANSETRON 2MG/ML, 2ML IVPush ONE (01:00)
--- NOTE | 2020-05-18 01:00 | NUR ---
pt in room, a&ox4. lying in position of comfort. difficult iv stick, and pt states that they usually use the ultrasound machine to get it. RN to bedside to attempt ultrasound IV.
[2020-05-18 01:10] LABS: ALANINE AMINOTRANSFERASE 17 U/L (12-78); ALBUMIN 3.1 g/dL (3.4-5.0); ANION GAP 8 mmol/L (5-15); BASOPHILS % (AUTO) 1 % (0-1); CALCIUM 8.4 mg/dL (8.5-10.1); CHLORIDE 108 mmol/L (98-107); CREATININE 0.72 mg/dL (0.7-1.3); EOSINOPHILS % (AUTO) 1 % (1-7); LYMPHOCYTES % (AUTO) 12 % (22-44); MEAN CORPUSCULAR HEMOGLOBIN 26.2 pg (27.5-34.5); MEAN CORPUSCULAR HGB CONC 33.1 g/dL (33.2-36.2); MEAN PLATELET VOLUME 9.2 fL (7.4-10.4); MONOCYTES % (AUTO) 6 % (2-9); NEUTROPHILS % (AUTO) 80 % (42-75); PLATELET COUNT 206 x10^3/uL (130-400); RED CELL DISTRIBUTION WIDTH 16.3 % (9.4-14.8)
[2020-05-18 01:13] LABS: ALKALINE PHOSPHATASE 134 U/L (45-117); BILIRUBIN,TOTAL 0.3 mg/dL (0.2-1.0); TOTAL PROTEIN 7.9 g/dL (6.4-8.2)
[2020-05-18 01:19] LABS: MD NO
--- NOTE | 2020-05-18 01:40 | NUR ---
CT DELAY- PT NEED AN IV
[2020-05-18] MEDS ORDERED: HYDROmorphone 1 MG/ML, 1ML INJ ONE (02:17)
--- NOTE | 2020-05-18 02:29 | NUR ---
PT TO CT AT THIS TIME, PER DR KOCH NOW NON CONTRAST D/T INABILITY TO OBTAIN VASCULAR ACCESS.
--- NOTE | 2020-05-18 02:45 | NUR ---
PT REQ ADDITIONAL PAIN MEDS STS ITS NOT HELPING ITS GETTING WORSE. ERP UPDATED NO NEW ORDERS AT THIS TIME.
[2020-05-18] MEDS ORDERED: ONDANSETRON ODT 4 MG ONE (03:15)
[2020-05-18] MEDS ORDERED: ONDANSETRON ODT 4 MG PO ONE (03:30)
[2020-05-18] MEDS ORDERED: KETOROLAC 30 MG/1 ML IM ONE (04:00)
[2020-05-18] MEDS ORDERED: DICYCLOMINE 10 MG/ML, 2ML IM ONE (04:00)
[2020-05-18] MEDS ORDERED: KETOROLAC 30 MG/1 ML ONE (04:04)
[2020-05-18] MEDS ORDERED: DICYCLOMINE 10 MG/ML, 2ML ONE (04:05)
--- NOTE | 2020-05-18 04:17 | NUR ---
Patient/Caregiver given discharge instructions and they have confirmed that they understand the instructions. Patient ambulatory with steady gait.
== END 2020-05-18 04:20 | disposition home or self-care (01) ==
LOC: ED 03:34
DX: A08.4 Viral intestinal infection, unspecified (principal); R10.84 Generalized abdominal pain; R19.7 Diarrhea, unspecified; R11.0 Nausea; E78.5 Hyperlipidemia, unspecified; K21.9 Gastro-esophageal reflux disease without esophagitis; Z48.00 Encounter for change or removal of nonsurgical wound dressing
CPT/HCPCS: 36415; 74176; 80053; 83690; 85025; 96372; 96374; 99285; J0500; J1170; J1885; Q0162